=== PATIENT | female | born 1970 | race Caucasian/White ===

== ENCOUNTER 2021-11-10 15:39 | Inpatient (IN) ==
[2021-11-10] MEDS ORDERED: Ipratropium/Albuterol Neb 3 ML IH ONE (16:23)
[2021-11-10] MEDS ORDERED: 0.9 % Sodium Chloride 1,000 ML IVC ONE (16:23)
[2021-11-10] MEDS ORDERED: Acetaminophen 325 MG TABLET PO ONE (16:25)
[2021-11-10] MEDS ORDERED: Ketorolac 30 MG/ML VIAL IVP ONE (16:25)
[2021-11-10] MEDS ORDERED: Albuterol 2.5 MG/3 ML NEBULIZER IH ONE (16:26)
[2021-11-10 16:50] LABS: Basophils % 0.5 %; Hematocrit 41.5 % (35.3-44.9); Hemoglobin 12.4 g/dL (11.5-15.4); Immature Granulocytes % 0.9 % (0-4); Lymphocytes # 0.6 K/mcL (0.6-4.6); Lymphocytes % 8.4 %; Mean Corpuscular HGB Conc 29.9 g/dL (31.6-35.5); Mean Corpuscular Volume 66.9 fL (83.0-100.0); Mean Platelet Volume 9.5 fL (9.4-12.4); Monocytes # 0.2 K/mcL (0.0-1.3); Monocytes % 3.2 %; Neutrophils # 5.7 K/mcL (1.6-8.9); Platelet Count 448 K/mcL (140-400); Red Cell Distribution Width 19.2 % (11.5-14.5); White Blood Count 6.6 K/mcL (4.3-11.1)
[2021-11-10 17:00] LABS: Alanine Aminotransferase 15 Units/L (7-52); Albumin 2.6 g/dL (3.5-5.7); Albumin/Globulin Ratio 0.6 (1.1-2.2); Alkaline Phosphatase 127 Units/L (34-104); Aspartate Amino Transferase 20 Units/L (13-39); BUN/Creatinine Ratio 18 (6-26); Bilirubin,Direct 0.2 mg/dL (0.0-0.2); Bilirubin,Indirect 0.3 mg/dL (0.0-1.0); Bilirubin,Total 0.5 mg/dL (0.3-1.0); Blood Urea Nitrogen 20 mg/dL (6-20); Calcium 8.5 mg/dL (8.6-10.3); Carbon Dioxide 25 mEq/L (23-29); Chloride 96 mEq/L (98-107); Globulin 4.2 g/dL (2.4-3.5); Glucose 169 mg/dL (70-105); Osmolality,Calculated 283 (280-300); Potassium 3.8 mEq/L (3.5-5.1); Sodium 133 mEq/L (136-145); Total Protein 6.8 g/dL (6.4-8.9); Troponin I < 0.03 ng/mL (< 0.04); eGFR For African Americans > 60 (> 60); eGFR For Non-African Americans 53 (> 60)
[2021-11-10 17:05] LABS: Lipase 9 Units/L (11-82)
[2021-11-10 17:23] LABS: Anisocytosis 1+ (Not Present)
[2021-11-10 17:24] LABS: Microcytosis Present (Not Present)
[2021-11-10 18:26] LABS: Influenza A PCR Negative (Negative); Influenza B PCR Negative (Negative); Resp. Syncytial Virus PCR Negative (Negative)
[2021-11-10 18:38] LABS: SARS-CoV-2 by PCR (In House) Positive (Negative)
[2021-11-10] MEDS ORDERED: Naloxone 0.4 MG/ML INJ IVP PRN (23:28)
[2021-11-10] MEDS ORDERED: Melatonin 3 MG TABLET PO PRN (23:28)
[2021-11-10] MEDS: Nicotine 21 MG PATCH.TD24 TD SCH (23:48)
[2021-11-11] MEDS: rOPINIRole 1 MG TABLET PO SCH ×4 (02:32→21:06)
[2021-11-11] MEDS ORDERED: *HR* Heparin 5,000 UNIT/ML VIAL SQ SCH (06:00)
[2021-11-11 06:11] LABS: Basophils % 0.2 %; Immature Granulocytes % 0.7 % (0-4); Lymphocytes # 0.7 K/mcL (0.6-4.6); Lymphocytes % 5.6 %; Mean Corpuscular HGB Conc 30.6 g/dL (31.6-35.5); Mean Corpuscular Hemoglobin 20.5 pg (28.0-33.3); Mean Corpuscular Volume 67.1 fL (83.0-100.0); Mean Platelet Volume 10.2 fL (9.4-12.4); Monocytes # 0.7 K/mcL (0.0-1.3); Monocytes % 5.5 %; Platelet Count 441 K/mcL (140-400); Red Blood Count 5.07 M/mcL (3.82-4.97); Red Cell Distribution Width 18.7 % (11.5-14.5)
[2021-11-11 06:14] LABS: Hemoglobin 10.4 g/dL (11.5-15.4); Neutrophils # 10.7 K/mcL (1.6-8.9); White Blood Count 12.1 K/mcL (4.3-11.1)
[2021-11-11 06:17] LABS: INR 1.3
[2021-11-11 06:39] LABS: Albumin 2.6 g/dL (3.5-5.7); Albumin/Globulin Ratio 0.7 (1.1-2.2); Bilirubin,Total 0.5 mg/dL (0.3-1.0); Calcium 7.9 mg/dL (8.6-10.3); Globulin 3.5 g/dL (2.4-3.5); Magnesium 1.7 mg/dL (1.6-2.6); Phosphorous 5.2 mg/dL (2.7-4.5); Potassium 4.3 mEq/L (3.5-5.1); Total Protein 6.1 g/dL (6.4-8.9); Troponin I 0.03 ng/mL (< 0.04)
[2021-11-11 06:53] LABS: Anisocytosis 1+ (Not Present); Hypochromasia Present (Not Present); Microcytosis Present (Not Present)
[2021-11-11] MEDS ORDERED: Azithromycin 250 MG TABLET PO ONE (07:50)
[2021-11-11] MEDS: Ipratropium 1 PUFF INHALER IH SCH ×5 (08:03→23:55)
[2021-11-11] MEDS: Dexamethasone Sodium Phos/PF 10 MG/ML VIAL IVP SCH (08:39)
[2021-11-11] MEDS: *HR* Enoxaparin 40 MG/0.4 ML SYRINGE SQ SCH ×2 (08:39→18:35)
[2021-11-11] MEDS: Acetaminophen 325 MG TABLET PO PRN ×2 (13:57→21:06)
[2021-11-11] MEDS: Nicotine 21 MG PATCH.TD24 TD SCH (21:03)
[2021-11-11] MEDS ORDERED: Chloraseptic Spray 177 ML BOTTLE MM PRN (22:51)
[2021-11-12] MEDS: Ipratropium 1 PUFF INHALER IH SCH ×6 (04:07→23:48)
[2021-11-12] MEDS: *HR* Enoxaparin 40 MG/0.4 ML SYRINGE SQ SCH ×2 (05:59→18:32)
[2021-11-12] MEDS ORDERED: *HR* Enoxaparin 40 MG/0.4 ML SYRINGE SQ SCH (06:00)
[2021-11-12] MEDS: Acetaminophen 325 MG TABLET PO PRN ×2 (06:04→12:35)
[2021-11-12] MEDS ORDERED: Azithromycin 500 MG in 0.9 % Sodium Chloride 250 ML IVPB SCH (08:00)
[2021-11-12] MEDS ORDERED: Azithromycin 250 MG TABLET PO SCH (09:00)
[2021-11-12] MEDS ORDERED: cefTRIAXone 1,000 MG in Water for inj. (sterile) 10 ML IVP SCH (09:00)
[2021-11-12] MEDS: Dexamethasone Sodium Phos/PF 10 MG/ML VIAL IVP SCH (09:07)
[2021-11-12] MEDS: rOPINIRole 1 MG TABLET PO SCH ×3 (09:08→22:04)
[2021-11-12 09:21] LABS: Hematocrit 34.4 % (35.3-44.9); Hemoglobin 10.3 g/dL (11.5-15.4); Mean Corpuscular HGB Conc 29.9 g/dL (31.6-35.5); Mean Corpuscular Hemoglobin 20.1 pg (28.0-33.3); Mean Corpuscular Volume 67.2 fL (83.0-100.0); Mean Platelet Volume 10.2 fL (9.4-12.4); Monocytes # 0.8 K/mcL (0.0-1.3); Platelet Count 498 K/mcL (140-400); Red Blood Count 5.12 M/mcL (3.82-4.97); Red Cell Distribution Width 18.3 % (11.5-14.5); White Blood Count 11.7 K/mcL (4.3-11.1)
[2021-11-12 09:41] LABS: Alanine Aminotransferase 30 Units/L (7-52); Albumin 2.6 g/dL (3.5-5.7); Albumin/Globulin Ratio 0.7 (1.1-2.2); Alkaline Phosphatase 88 Units/L (34-104); Aspartate Amino Transferase 32 Units/L (13-39); BUN/Creatinine Ratio 31 (6-26); Bilirubin,Total 0.4 mg/dL (0.3-1.0); Blood Urea Nitrogen 31 mg/dL (6-20); Calcium 8.3 mg/dL (8.6-10.3); Carbon Dioxide 26 mEq/L (23-29); Chloride 92 mEq/L (98-107); Globulin 3.9 g/dL (2.4-3.5); Glucose 260 mg/dL (70-105); Osmolality,Calculated 282 (280-300); Potassium 4.4 mEq/L (3.5-5.1); Sodium 128 mEq/L (136-145); Total Protein 6.5 g/dL (6.4-8.9); eGFR For African Americans > 60 (> 60); eGFR For Non-African Americans 58 (> 60)
[2021-11-12 10:08] LABS: Anisocytosis 2+ (Not Present); Lymphocytes # 1.3 K/mcL (0.6-4.6); Neutrophils # 9.5 K/mcL (1.6-8.9)
[2021-11-12 10:09] LABS: Hypochromasia Present (Not Present); Microcytosis Present (Not Present); Platelet Estimate Increased (Normal)
[2021-11-12 10:10] LABS: Toxic Granulation Present (Not Present)
[2021-11-12] MEDS: cefTRIAXone 1,000 MG in 0.9 % Sodium Chloride Mini Bag 100 ML IVP SCH (12:27)
[2021-11-12] MEDS ORDERED: Naloxone 0.4 MG/ML INJ IVP PRN (13:06)
[2021-11-12] MEDS: *HR* OxyCODONE Immed Rel 5 MG TABLET PO PRN ×2 (14:28→22:04)
[2021-11-12] MEDS: Sennosides/Docusate Sodium TABLET PO PRN ×2 (14:28→22:05)
[2021-11-12] MEDS: Doxycycline 100 MG in 0.9 % Sodium Chloride Mini Bag 100 ML IVPB SCH (18:32)
[2021-11-12] MEDS: Nicotine 21 MG PATCH.TD24 TD SCH (22:03)
[2021-11-13 01:41] LABS: Hematocrit 32.7 % (35.3-44.9); Hemoglobin 9.8 g/dL (11.5-15.4); Mean Corpuscular Hemoglobin 20.2 pg (28.0-33.3); Mean Corpuscular Volume 67.4 fL (83.0-100.0); Mean Platelet Volume 9.8 fL (9.4-12.4); Platelet Count 517 K/mcL (140-400); Red Blood Count 4.85 M/mcL (3.82-4.97); Red Cell Distribution Width 18.1 % (11.5-14.5); White Blood Count 13.4 K/mcL (4.3-11.1)
[2021-11-13 01:59] LABS: Alanine Aminotransferase 27 Units/L (7-52); Albumin 2.4 g/dL (3.5-5.7); Albumin/Globulin Ratio 0.6 (1.1-2.2); Alkaline Phosphatase 79 Units/L (34-104); Aspartate Amino Transferase 22 Units/L (13-39); BUN/Creatinine Ratio 35 (6-26); Bilirubin,Total 0.3 mg/dL (0.3-1.0); Blood Urea Nitrogen 30 mg/dL (6-20); Calcium 8.3 mg/dL (8.6-10.3); Carbon Dioxide 28 mEq/L (23-29); Chloride 92 mEq/L (98-107); D-Dimer 2920 ng/mLFEU (0-500); Globulin 3.9 g/dL (2.4-3.5); Glucose 439 mg/dL (70-105); Osmolality,Calculated 287 (280-300); Potassium 4.9 mEq/L (3.5-5.1); Sodium 126 mEq/L (136-145); Total Protein 6.3 g/dL (6.4-8.9); eGFR For African Americans > 60 (> 60); eGFR For Non-African Americans > 60 (> 60)
[2021-11-13 02:01] LABS: C-Reactive Protein 291 mg/L (Less than 10); Fibrinogen 787 mg/dL (169-393); Lactate Dehydrogenase 146 Units/L (140-271)
[2021-11-13 02:18] LABS: Anisocytosis 1+ (Not Present); Ferritin 420 ng/mL (10-120); Hypochromasia Present (Not Present); Lymphocytes # 1.1 K/mcL (0.6-4.6); Monocytes # 0.5 K/mcL (0.0-1.3); Neutrophils # 11.8 K/mcL (1.6-8.9); Platelet Estimate Increased (Normal); Toxic Granulation Present (Not Present)
[2021-11-13] MEDS: Ipratropium 1 PUFF INHALER IH SCH ×6 (04:03→23:44)
[2021-11-13] MEDS: Doxycycline 100 MG in 0.9 % Sodium Chloride Mini Bag 100 ML IVPB SCH ×2 (06:03→18:48)
[2021-11-13] MEDS: *HR* Enoxaparin 40 MG/0.4 ML SYRINGE SQ SCH ×2 (06:04→18:50)
[2021-11-13] MEDS ORDERED: Isovue-370 500 ML BOTTLE IVP ONE ×2 (07:41→11:27)
[2021-11-13] MEDS: rOPINIRole 1 MG TABLET PO SCH ×3 (08:29→21:06)
[2021-11-13] MEDS: *HR* OxyCODONE Immed Rel 5 MG TABLET PO PRN ×2 (08:29→15:16)
[2021-11-13] MEDS: Dexamethasone Sodium Phos/PF 10 MG/ML VIAL IVP SCH (08:30)
[2021-11-13] MEDS: cefTRIAXone 1,000 MG in 0.9 % Sodium Chloride Mini Bag 100 ML IVP SCH (08:31)
[2021-11-13 08:33] LABS: Magnesium 2.1 mg/dL (1.6-2.6)
[2021-11-13] MEDS ORDERED: 0.9 % Sodium Chloride 1,000 ML IVC SCH (11:30)
[2021-11-13] MEDS ORDERED: *HR* Dextrose 50 % in Water (Syg) 50 ML SYRINGE IVP PRN (15:49)
[2021-11-13] MEDS ORDERED: Dextrose Gel 15 GM/37.5 ML TUBE PO PRN ×2 (15:49)
[2021-11-13] MEDS ORDERED: D5% in Water 1,000 ML IVC PRN (15:49)
[2021-11-13 17:22] LABS: Estimated Average Glucose 235 mg/dl; Hemoglobin A1C 9.8 %
[2021-11-13] MEDS: Nicotine 21 MG PATCH.TD24 TD SCH (21:07)
[2021-11-13] MEDS: Insulin LISPRO 300 UNITS/3 ML VIAL SUBQ SCH (21:27)
[2021-11-14] MEDS ORDERED: Insulin DETEMIR 100 UNIT/ML X5UNITS SUBQ ONE (00:03)
[2021-11-14] MEDS: *HR* OxyCODONE Immed Rel 5 MG TABLET PO PRN ×3 (01:08→20:56)
[2021-11-14] MEDS: Ipratropium 1 PUFF INHALER IH SCH ×5 (03:49→19:56)
[2021-11-14] MEDS: Ondansetron 4 MG/2 ML VIAL IVP PRN (04:39)
[2021-11-14] MEDS: *HR* Enoxaparin 40 MG/0.4 ML SYRINGE SQ SCH ×2 (05:08→16:51)
[2021-11-14 05:51] LABS: Basophils % 0.3 %; Hematocrit 33.5 % (35.3-44.9); Immature Granulocytes % 2.9 % (0-4); Lymphocytes # 0.9 K/mcL (0.6-4.6); Lymphocytes % 6.9 %; Mean Corpuscular HGB Conc 29.9 g/dL (31.6-35.5); Mean Corpuscular Hemoglobin 20.3 pg (28.0-33.3); Mean Platelet Volume 9.9 fL (9.4-12.4); Monocytes # 1.1 K/mcL (0.0-1.3); Monocytes % 8.6 %; Neutrophils # 10.4 K/mcL (1.6-8.9); Platelet Count 529 K/mcL (140-400); Red Blood Count 4.93 M/mcL (3.82-4.97); Red Cell Distribution Width 18.3 % (11.5-14.5); Segmented Neutrophils % 81.3 %; White Blood Count 12.8 K/mcL (4.3-11.1)
[2021-11-14 06:14] LABS: Alanine Aminotransferase 28 Units/L (7-52); Albumin 2.5 g/dL (3.5-5.7); Albumin/Globulin Ratio 0.7 (1.1-2.2); Alkaline Phosphatase 90 Units/L (34-104); Aspartate Amino Transferase 19 Units/L (13-39); BUN/Creatinine Ratio 34 (6-26); Bilirubin,Total 0.4 mg/dL (0.3-1.0); Blood Urea Nitrogen 28 mg/dL (6-20); Calcium 8.4 mg/dL (8.6-10.3); Carbon Dioxide 27 mEq/L (23-29); Chloride 95 mEq/L (98-107); Globulin 3.8 g/dL (2.4-3.5); Glucose 377 mg/dL (70-105); Osmolality,Calculated 289 (280-300); Potassium 4.6 mEq/L (3.5-5.1); Sodium 129 mEq/L (136-145); Total Protein 6.3 g/dL (6.4-8.9); eGFR For African Americans > 60 (> 60); eGFR For Non-African Americans > 60 (> 60)
[2021-11-14 06:16] LABS: Anisocytosis 1+ (Not Present); Hypochromasia Present (Not Present); Platelet Estimate Marked Increase (Normal)
[2021-11-14] MEDS: Doxycycline 100 MG in 0.9 % Sodium Chloride Mini Bag 100 ML IVPB SCH (06:23)
[2021-11-14] MEDS: cefTRIAXone 1,000 MG in 0.9 % Sodium Chloride Mini Bag 100 ML IVP SCH (10:04)
[2021-11-14] MEDS: rOPINIRole 1 MG TABLET PO SCH ×3 (10:04→20:42)
[2021-11-14] MEDS: Dexamethasone Sodium Phos/PF 10 MG/ML VIAL IVP SCH (10:05)
[2021-11-14 16:45] LABS: Glucose,Peritoneal Fluid < 10 mg/dL (No Ref Range); LDH,Peritoneal Fluid > 1200 Units/L (No Ref Range); Total Protein,Peritoneal Fluid < 2.0 g/dL
[2021-11-14 16:49] LABS: RBC,Peritoneal Fluid 255000 RBC/mcL
[2021-11-14] MEDS: Piperacillin/Tazobactam 3.375 GM in 0.9 % Sodium Chloride Mini Bag 100 ML IVPB SCH (16:51)
[2021-11-14] MEDS: Insulin LISPRO 300 UNITS/3 ML VIAL SUBQ SCH ×2 (16:52→20:43)
[2021-11-14 17:27] LABS: Appearance of Peritoneal Fl CLOUDY (Clear)
[2021-11-14 17:47] LABS: Basophils,Peritoneal Fluid 0 %; Eosinophils,Peritoneal Fluid 0 %
[2021-11-14] MEDS: Insulin DETEMIR 100 UNIT/ML X5UNITS SUBQ SCH (20:42)
[2021-11-14] MEDS: Nicotine 21 MG PATCH.TD24 TD SCH (20:43)
[2021-11-15] MEDS: Ipratropium 1 PUFF INHALER IH SCH ×7 (00:07→23:13)
[2021-11-15] MEDS: Piperacillin/Tazobactam 3.375 GM in 0.9 % Sodium Chloride Mini Bag 100 ML IVPB SCH ×4 (00:24→23:49)
[2021-11-15] MEDS: Ondansetron 4 MG/2 ML VIAL IVP PRN (00:29)
[2021-11-15] MEDS: *HR* OxyCODONE Immed Rel 5 MG TABLET PO PRN ×3 (04:26→20:20)
[2021-11-15] MEDS: *HR* Enoxaparin 40 MG/0.4 ML SYRINGE SQ SCH ×2 (05:34→16:46)
[2021-11-15 05:41] LABS: Hematocrit 35.9 % (35.3-44.9); Hemoglobin 10.7 g/dL (11.5-15.4); Mean Corpuscular HGB Conc 29.8 g/dL (31.6-35.5); Mean Corpuscular Hemoglobin 20.2 pg (28.0-33.3); Mean Corpuscular Volume 67.9 fL (83.0-100.0); Mean Platelet Volume 9.6 fL (9.4-12.4); Nucleated Red Blood Cells 0.2 /100 WBC (0); Platelet Count 529 K/mcL (140-400); Red Blood Count 5.29 M/mcL (3.82-4.97); Red Cell Distribution Width 18.2 % (11.5-14.5); White Blood Count 12.6 K/mcL (4.3-11.1)
[2021-11-15 05:56] LABS: Fibrinogen 562 mg/dL (169-393)
[2021-11-15 06:01] LABS: D-Dimer 3674 ng/mLFEU (0-500)
[2021-11-15 06:03] LABS: Alanine Aminotransferase 35 Units/L (7-52); Albumin 2.5 g/dL (3.5-5.7); Albumin/Globulin Ratio 0.7 (1.1-2.2); Alkaline Phosphatase 85 Units/L (34-104); Aspartate Amino Transferase 28 Units/L (13-39); BUN/Creatinine Ratio 31 (6-26); Bilirubin,Total 0.5 mg/dL (0.3-1.0); Blood Urea Nitrogen 24 mg/dL (6-20); Calcium 8.5 mg/dL (8.6-10.3); Carbon Dioxide 30 mEq/L (23-29); Chloride 94 mEq/L (98-107); Globulin 3.7 g/dL (2.4-3.5); Glucose 225 mg/dL (70-105); Lactate Dehydrogenase 172 Units/L (140-271); Osmolality,Calculated 283 (280-300); Potassium 4.5 mEq/L (3.5-5.1); Sodium 131 mEq/L (136-145); Total Protein 6.2 g/dL (6.4-8.9); eGFR For African Americans > 60 (> 60); eGFR For Non-African Americans > 60 (> 60)
[2021-11-15 06:15] LABS: Ferritin 338 ng/mL (10-120)
[2021-11-15] MEDS: Insulin LISPRO 300 UNITS/3 ML VIAL SUBQ SCH ×4 (07:34→20:21)
[2021-11-15 07:45] LABS: Lymphocytes # 1.5 K/mcL (0.6-4.6); Monocytes # 1.4 K/mcL (0.0-1.3); Neutrophils # 9.3 K/mcL (1.6-8.9); Stomatocytes 1+ (Not Present); Target Cells 1+ (Not Present)
[2021-11-15 07:46] LABS: Anisocytosis 1+ (Not Present)
[2021-11-15 07:49] LABS: Platelet Estimate Increased (Normal)
[2021-11-15] MEDS: rOPINIRole 1 MG TABLET PO SCH ×3 (08:40→20:19)
[2021-11-15] MEDS: Dexamethasone Sodium Phos/PF 10 MG/ML VIAL IVP SCH (08:41)
[2021-11-15 10:13] LABS: C-Reactive Protein 149 mg/L (Less than 10)
[2021-11-15] MEDS: Nicotine 21 MG PATCH.TD24 TD SCH (20:19)
[2021-11-15] MEDS: Insulin DETEMIR 100 UNIT/ML X5UNITS SUBQ SCH (20:19)
[2021-11-16] MEDS: Ipratropium 1 PUFF INHALER IH SCH ×6 (03:39→23:18)
[2021-11-16] MEDS: *HR* Enoxaparin 40 MG/0.4 ML SYRINGE SQ SCH ×2 (04:04→17:09)
[2021-11-16] MEDS: *HR* OxyCODONE Immed Rel 5 MG TABLET PO PRN ×3 (04:04→18:11)
[2021-11-16 04:56] LABS: Hematocrit 35.5 % (35.3-44.9); Hemoglobin 10.6 g/dL (11.5-15.4); Mean Corpuscular HGB Conc 29.9 g/dL (31.6-35.5); Mean Corpuscular Hemoglobin 20.2 pg (28.0-33.3); Mean Corpuscular Volume 67.7 fL (83.0-100.0); Mean Platelet Volume 9.4 fL (9.4-12.4); Nucleated Red Blood Cells 0.2 /100 WBC (0); Platelet Count 472 K/mcL (140-400); Red Blood Count 5.24 M/mcL (3.82-4.97); White Blood Count 14.6 K/mcL (4.3-11.1)
[2021-11-16 05:12] LABS: Alanine Aminotransferase 46 Units/L (7-52); Albumin 2.4 g/dL (3.5-5.7); Albumin/Globulin Ratio 0.7 (1.1-2.2); Alkaline Phosphatase 80 Units/L (34-104); Aspartate Amino Transferase 36 Units/L (13-39); BUN/Creatinine Ratio 25 (6-26); Bilirubin,Total 0.5 mg/dL (0.3-1.0); Blood Urea Nitrogen 20 mg/dL (6-20); Calcium 8.2 mg/dL (8.6-10.3); Carbon Dioxide 31 mEq/L (23-29); Chloride 95 mEq/L (98-107); Globulin 3.6 g/dL (2.4-3.5); Glucose 164 mg/dL (70-105); Osmolality,Calculated 282 (280-300); Potassium 4.3 mEq/L (3.5-5.1); Sodium 133 mEq/L (136-145); eGFR For African Americans > 60 (> 60); eGFR For Non-African Americans > 60 (> 60)
[2021-11-16 07:23] LABS: Monocytes # 0.9 K/mcL (0.0-1.3)
[2021-11-16 07:25] LABS: Lymphocytes # 1.6 K/mcL (0.6-4.6); Neutrophils # 11.7 K/mcL (1.6-8.9); Platelet Estimate Normal (Normal)
[2021-11-16 07:26] LABS: Anisocytosis 1+ (Not Present); Hypochromasia Present (Not Present); Polychromasia 1+ (Not Present)
[2021-11-16] MEDS ORDERED: Vancomycin 2,000 MG/520 ML IV.SOLN IVPB ONE (08:00)
[2021-11-16] MEDS: Dexamethasone Sodium Phos/PF 10 MG/ML VIAL IVP SCH (08:57)
[2021-11-16] MEDS: rOPINIRole 1 MG TABLET PO SCH ×3 (08:57→21:16)
[2021-11-16] MEDS: Insulin LISPRO 300 UNITS/3 ML VIAL SUBQ SCH ×4 (08:58→21:23)
[2021-11-16] MEDS: Piperacillin/Tazobactam 3.375 GM in 0.9 % Sodium Chloride Mini Bag 100 ML IVPB SCH ×2 (09:04→15:06)
[2021-11-16] MEDS: Sennosides/Docusate Sodium TABLET PO PRN (09:23)
[2021-11-16 16:42] LABS: Fluid Source for Albumin PERITON/ASCITES
[2021-11-16] MEDS: Nicotine 21 MG PATCH.TD24 TD SCH (21:16)
[2021-11-16] MEDS: Insulin DETEMIR 100 UNIT/ML X5UNITS SUBQ SCH (21:23)
[2021-11-16] MEDS: Vancomycin 1,750 MG/517.5 ML IV.SOLN IVPB SCH (21:31)
[2021-11-17] MEDS: Piperacillin/Tazobactam 3.375 GM in 0.9 % Sodium Chloride Mini Bag 100 ML IVPB SCH ×3 (01:08→17:26)
[2021-11-17] MEDS: *HR* OxyCODONE Immed Rel 5 MG TABLET PO PRN ×3 (01:08→17:25)
[2021-11-17 01:56] LABS: Basophils % 0.1 %; Eosinophils % 0.1 %; Hematocrit 34.6 % (35.3-44.9); Hemoglobin 10.2 g/dL (11.5-15.4); Immature Granulocytes % 9.8 % (0-4); Lymphocytes # 1.4 K/mcL (0.6-4.6); Lymphocytes % 9.7 %; Mean Corpuscular HGB Conc 29.5 g/dL (31.6-35.5); Mean Platelet Volume 9.6 fL (9.4-12.4); Monocytes # 1.1 K/mcL (0.0-1.3); Monocytes % 7.6 %; Nucleated Red Blood Cells 0.3 /100 WBC (0); Platelet Count 442 K/mcL (140-400); Red Blood Count 5.09 M/mcL (3.82-4.97); Red Cell Distribution Width 18.4 % (11.5-14.5); Segmented Neutrophils % 72.7 %; White Blood Count 14.5 K/mcL (4.3-11.1)
[2021-11-17 01:59] LABS: Neutrophils # 10.5 K/mcL (1.6-8.9)
[2021-11-17 02:16] LABS: Fibrinogen 562 mg/dL (169-393)
[2021-11-17 02:19] LABS: D-Dimer 2159 ng/mLFEU (0-500)
[2021-11-17 02:20] LABS: Alanine Aminotransferase 43 Units/L (7-52); Albumin 2.3 g/dL (3.5-5.7); Albumin/Globulin Ratio 0.7 (1.1-2.2); Alkaline Phosphatase 75 Units/L (34-104); Aspartate Amino Transferase 26 Units/L (13-39); BUN/Creatinine Ratio 22 (6-26); Bilirubin,Total 0.5 mg/dL (0.3-1.0); Blood Urea Nitrogen 17 mg/dL (6-20); C-Reactive Protein 229 mg/L (Less than 10); Calcium 7.9 mg/dL (8.6-10.3); Carbon Dioxide 30 mEq/L (23-29); Chloride 97 mEq/L (98-107); Globulin 3.5 g/dL (2.4-3.5); Glucose 156 mg/dL (70-105); Lactate Dehydrogenase 168 Units/L (140-271); Osmolality,Calculated 281 (280-300); Potassium 4.2 mEq/L (3.5-5.1); Sodium 133 mEq/L (136-145); Total Protein 5.8 g/dL (6.4-8.9); eGFR For African Americans > 60 (> 60); eGFR For Non-African Americans > 60 (> 60)
[2021-11-17 02:28] LABS: Microcytosis Present (Not Present)
[2021-11-17 02:37] LABS: Ferritin 358 ng/mL (10-120)
[2021-11-17] MEDS: Ipratropium 1 PUFF INHALER IH SCH ×6 (04:23→23:31)
[2021-11-17] MEDS: *HR* Enoxaparin 40 MG/0.4 ML SYRINGE SQ SCH ×2 (06:52→17:25)
[2021-11-17] MEDS: Insulin LISPRO 300 UNITS/3 ML VIAL SUBQ SCH ×4 (07:24→20:52)
[2021-11-17] MEDS: rOPINIRole 1 MG TABLET PO SCH ×3 (09:45→20:54)
[2021-11-17] MEDS: Vancomycin 1,750 MG/517.5 ML IV.SOLN IVPB SCH (09:46)
[2021-11-17] MEDS: Dexamethasone Sodium Phos/PF 10 MG/ML VIAL IVP SCH (09:46)
[2021-11-17] MEDS: Sennosides/Docusate Sodium TABLET PO PRN (09:49)
[2021-11-17] MEDS: Acetaminophen 325 MG TABLET PO PRN (09:58)
[2021-11-17] MEDS: Nicotine 21 MG PATCH.TD24 TD SCH (20:54)
[2021-11-17] MEDS: Insulin DETEMIR 100 UNIT/ML X5UNITS SUBQ SCH (21:04)
[2021-11-18 01:14] LABS: Hematocrit 33.6 % (35.3-44.9); Mean Corpuscular HGB Conc 29.8 g/dL (31.6-35.5); Mean Corpuscular Hemoglobin 20.5 pg (28.0-33.3); Mean Corpuscular Volume 68.9 fL (83.0-100.0); Platelet Count 407 K/mcL (140-400); Red Blood Count 4.88 M/mcL (3.82-4.97); Red Cell Distribution Width 18.8 % (11.5-14.5)
[2021-11-18] MEDS: Piperacillin/Tazobactam 3.375 GM in 0.9 % Sodium Chloride Mini Bag 100 ML IVPB SCH ×3 (01:16→16:55)
[2021-11-18] MEDS: *HR* OxyCODONE Immed Rel 5 MG TABLET PO PRN ×3 (01:19→16:54)
[2021-11-18 01:38] LABS: Alanine Aminotransferase 54 Units/L (7-52); Albumin 2.3 g/dL (3.5-5.7); Albumin/Globulin Ratio 0.7 (1.1-2.2); Alkaline Phosphatase 95 Units/L (34-104); Aspartate Amino Transferase 38 Units/L (13-39); BUN/Creatinine Ratio 16 (6-26); Bilirubin,Total 0.5 mg/dL (0.3-1.0); Blood Urea Nitrogen 15 mg/dL (6-20); Calcium 7.9 mg/dL (8.6-10.3); Carbon Dioxide 29 mEq/L (23-29); Chloride 96 mEq/L (98-107); Globulin 3.5 g/dL (2.4-3.5); Glucose 266 mg/dL (70-105); Osmolality,Calculated 284 (280-300); Potassium 4.6 mEq/L (3.5-5.1); Sodium 132 mEq/L (136-145); Total Protein 5.8 g/dL (6.4-8.9); eGFR For African Americans > 60 (> 60); eGFR For Non-African Americans > 60 (> 60)
[2021-11-18 01:45] LABS: Hypochromasia Present (Not Present); Lymphocytes # 2.1 K/mcL (0.6-4.6); Monocytes # 0.6 K/mcL (0.0-1.3); Neutrophils # 11.7 K/mcL (1.6-8.9); Platelet Estimate Normal (Normal); Toxic Granulation Present (Not Present)
[2021-11-18] MEDS: Ipratropium 1 PUFF INHALER IH SCH ×5 (03:44→20:08)
[2021-11-18] MEDS: *HR* Enoxaparin 40 MG/0.4 ML SYRINGE SQ SCH ×2 (04:58→16:54)
[2021-11-18] MEDS: Acetaminophen 325 MG TABLET PO PRN (05:54)
[2021-11-18] MEDS: rOPINIRole 1 MG TABLET PO SCH ×3 (10:13→20:45)
[2021-11-18] MEDS: Dexamethasone Sodium Phos/PF 10 MG/ML VIAL IVP SCH (10:18)
[2021-11-18] MEDS: Insulin LISPRO 300 UNITS/3 ML VIAL SUBQ SCH ×4 (10:20→21:06)
[2021-11-18] MEDS: Sennosides/Docusate Sodium TABLET PO PRN (10:21)
[2021-11-18] MEDS: Nicotine 21 MG PATCH.TD24 TD SCH (20:44)
[2021-11-18] MEDS: Insulin DETEMIR 100 UNIT/ML X5UNITS SUBQ SCH (21:07)
[2021-11-19] MEDS: Ipratropium 1 PUFF INHALER IH SCH ×7 (00:11→23:41)
[2021-11-19] MEDS: Piperacillin/Tazobactam 3.375 GM in 0.9 % Sodium Chloride Mini Bag 100 ML IVPB SCH ×3 (00:54→17:30)
[2021-11-19] MEDS: *HR* OxyCODONE Immed Rel 5 MG TABLET PO PRN ×3 (00:56→17:23)
[2021-11-19 02:14] LABS: Hematocrit 33.3 % (35.3-44.9); Hemoglobin 10.1 g/dL (11.5-15.4); Mean Corpuscular HGB Conc 30.3 g/dL (31.6-35.5); Mean Corpuscular Hemoglobin 20.6 pg (28.0-33.3); Mean Corpuscular Volume 67.8 fL (83.0-100.0); Mean Platelet Volume 9.7 fL (9.4-12.4); Monocytes # 1.1 K/mcL (0.0-1.3); Platelet Count 379 K/mcL (140-400); Red Blood Count 4.91 M/mcL (3.82-4.97); Red Cell Distribution Width 18.6 % (11.5-14.5); White Blood Count 13.1 K/mcL (4.3-11.1)
[2021-11-19 02:29] LABS: BUN/Creatinine Ratio 18 (6-26); Blood Urea Nitrogen 13 mg/dL (6-20); Calcium 8.1 mg/dL (8.6-10.3); Carbon Dioxide 30 mEq/L (23-29); Chloride 93 mEq/L (98-107); Glucose 202 mg/dL (70-105); Osmolality,Calculated 276 (280-300); Potassium 4.3 mEq/L (3.5-5.1); Sodium 130 mEq/L (136-145); eGFR For African Americans > 60 (> 60); eGFR For Non-African Americans > 60 (> 60)
[2021-11-19 03:33] LABS: Anisocytosis 1+ (Not Present); Hypochromasia Present (Not Present); Lymphocytes # 2.6 K/mcL (0.6-4.6); Neutrophils # 9.4 K/mcL (1.6-8.9)
[2021-11-19] MEDS: *HR* Enoxaparin 40 MG/0.4 ML SYRINGE SQ SCH ×2 (05:12→17:25)
[2021-11-19] MEDS: Sennosides/Docusate Sodium TABLET PO PRN (09:10)
[2021-11-19] MEDS: rOPINIRole 1 MG TABLET PO SCH ×3 (09:11→20:34)
[2021-11-19] MEDS: Dexamethasone Sodium Phos/PF 10 MG/ML VIAL IVP SCH (09:12)
[2021-11-19] MEDS: Insulin LISPRO 300 UNITS/3 ML VIAL SUBQ SCH ×4 (09:26→22:50)
[2021-11-19] MEDS ORDERED: Isovue-370 500 ML BOTTLE IVP ONE (10:00)
[2021-11-19] MEDS: Acetaminophen 325 MG TABLET PO PRN ×2 (14:17→20:34)
[2021-11-19] MEDS: Nicotine 21 MG PATCH.TD24 TD SCH (20:34)
[2021-11-19] MEDS: Insulin DETEMIR 100 UNIT/ML X5UNITS SUBQ SCH (20:35)
[2021-11-20] MEDS: *HR* OxyCODONE Immed Rel 5 MG TABLET PO PRN ×2 (01:07→08:40)
[2021-11-20] MEDS: Piperacillin/Tazobactam 3.375 GM in 0.9 % Sodium Chloride Mini Bag 100 ML IVPB SCH ×3 (01:07→15:55)
[2021-11-20 01:31] LABS: Basophils # 0.1 K/mcL (0.0-0.2); Basophils % 0.6 %; Eosinophils % 0.1 %; Hemoglobin 10.3 g/dL (11.5-15.4); Immature Granulocytes % 7.5 % (0-4); Lymphocytes # 1.7 K/mcL (0.6-4.6); Lymphocytes % 13.3 %; Mean Corpuscular HGB Conc 30.3 g/dL (31.6-35.5); Mean Corpuscular Hemoglobin 20.7 pg (28.0-33.3); Mean Corpuscular Volume 68.3 fL (83.0-100.0); Mean Platelet Volume 9.5 fL (9.4-12.4); Monocytes # 1.1 K/mcL (0.0-1.3); Monocytes % 8.5 %; Neutrophils # 9.1 K/mcL (1.6-8.9); Nucleated Red Blood Cells 0.2 /100 WBC (0); Platelet Count 378 K/mcL (140-400); Red Blood Count 4.98 M/mcL (3.82-4.97); Red Cell Distribution Width 18.6 % (11.5-14.5)
[2021-11-20 01:51] LABS: BUN/Creatinine Ratio 18 (6-26); Blood Urea Nitrogen 14 mg/dL (6-20); Calcium 8.2 mg/dL (8.6-10.3); Carbon Dioxide 30 mEq/L (23-29); Chloride 93 mEq/L (98-107); Glucose 244 mg/dL (70-105); Osmolality,Calculated 287 (280-300); Sodium 134 mEq/L (136-145); eGFR For African Americans > 60 (> 60); eGFR For Non-African Americans > 60 (> 60)
[2021-11-20] MEDS: Ipratropium 1 PUFF INHALER IH SCH ×4 (03:57→15:44)
[2021-11-20] MEDS: *HR* Enoxaparin 40 MG/0.4 ML SYRINGE SQ SCH (05:08)
[2021-11-20] MEDS: Acetaminophen 325 MG TABLET PO PRN (05:08)
[2021-11-20] MEDS: Insulin LISPRO 300 UNITS/3 ML VIAL SUBQ SCH ×3 (07:48→17:07)
[2021-11-20] MEDS: Dexamethasone Sodium Phos/PF 10 MG/ML VIAL IVP SCH (08:35)
[2021-11-20] MEDS: rOPINIRole 1 MG TABLET PO SCH ×2 (08:37→15:54)
[2021-11-20] MEDS ORDERED: Insulin DETEMIR 100 UNIT/ML X5UNITS SUBQ SCH (09:00)
[2021-11-20 11:19] VITALS: TEMP 98
[2021-11-20 17:33] VITALS: BP 130/79; PULSE 73; O2SAT 91
== END 2021-11-20 18:10 | disposition left against medical advice (07) | DRG 720 ==
LOC: 2ANU 15:39 → EMEROOARM 15:39 → SUATTDRO 19:26 → 2ANU 20:09 → SUATTDRO 11-11 07:46
PROVIDERS: ADMIT Family Medicine; ATTEND Internal Medicine

== ENCOUNTER 2022-03-10 21:58 | Inpatient (IN) ==
[2022-03-10 23:57] LABS: Hematocrit 38.5 % (35.3-44.9); Hemoglobin 11.2 g/dL (11.5-15.4); Mean Corpuscular HGB Conc 29.1 g/dL (31.6-35.5); Mean Corpuscular Volume 75.8 fL (83.0-100.0); Mean Platelet Volume 9.3 fL (9.4-12.4); Platelet Count 321 K/mcL (140-400); Red Blood Count 5.08 M/mcL (3.82-4.97); Red Cell Distribution Width 15.7 % (11.5-14.5); White Blood Count 6.5 K/mcL (4.3-11.1)
[2022-03-11 00:11] LABS: BUN/Creatinine Ratio 33 (6-26); Blood Urea Nitrogen 18 mg/dL (6-20); Carbon Dioxide 31 mEq/L (23-29); Chloride 95 mEq/L (98-107); Glucose 135 mg/dL (70-105); Osmolality,Calculated 282 (280-300); Sodium 134 mEq/L (136-145); eGFR For African Americans > 60 (> 60); eGFR For Non-African Americans > 60 (> 60)
[2022-03-11 00:29] LABS: Platelet Estimate Normal (Normal)
[2022-03-11 00:31] LABS: Eosinophils # 0.2 K/mcL (0.0-0.6); Eosinophils % 2.5 %; Lymphocytes # 2.6 K/mcL (0.6-4.6); Lymphocytes % 39.7 %; Monocytes # 0.5 K/mcL (0.0-1.3); Monocytes % 7.4 %; Neutrophils # 3.2 K/mcL (1.6-8.9); Segmented Neutrophils % 49.4 %
[2022-03-11 00:32] LABS: Basophils % 0.5 %; Immature Granulocytes % 0.5 % (0-4)
[2022-03-11] MEDS ORDERED: Melatonin 3 MG TABLET PO PRN (01:37)
[2022-03-11] MEDS ORDERED: Naloxone 0.4 MG/ML INJ IVP PRN (01:37)
[2022-03-11] MEDS ORDERED: Acetaminophen 325 MG TABLET PO PRN (01:37)
[2022-03-11] MEDS ORDERED: D5% in Water 1,000 ML IVC PRN (03:40)
[2022-03-11] MEDS ORDERED: Dextrose Gel 15 GM/37.5 ML TUBE PO PRN ×2 (03:40)
[2022-03-11] MEDS ORDERED: *HR* Dextrose 50 % in Water (Syg) 50 ML SYRINGE IVP PRN (03:40)
[2022-03-11] MEDS ORDERED: Saliva Stimulant 44.3ml BOTTLE PO PRN ×2 (03:41→05:16)
[2022-03-11] MEDS ORDERED: rOPINIRole 1 MG TABLET PO ONE (03:55)
[2022-03-11 04:52] LABS: Hemoglobin 11.1 g/dL (11.5-15.4)
[2022-03-11 04:54] LABS: Hematocrit 39.6 % (35.3-44.9); Mean Corpuscular Hemoglobin 21.5 pg (28.0-33.3); Mean Corpuscular Volume 76.6 fL (83.0-100.0); Mean Platelet Volume 9.5 fL (9.4-12.4); Platelet Count 336 K/mcL (140-400); Red Blood Count 5.17 M/mcL (3.82-4.97); Red Cell Distribution Width 15.9 % (11.5-14.5); White Blood Count 6.6 K/mcL (4.3-11.1)
[2022-03-11 05:01] LABS: Activated Partial Thrombo Time 30.2 Seconds (26.0-36.0); INR 1.2; Prothrombin Time 13.4 Seconds (9.4-12.1)
[2022-03-11 05:08] LABS: BUN/Creatinine Ratio 32 (6-26); Blood Urea Nitrogen 18 mg/dL (6-20); Calcium 10.1 mg/dL (8.6-10.3); Carbon Dioxide 32 mEq/L (23-29); Chloride 95 mEq/L (98-107); Glucose 141 mg/dL (70-105); Osmolality,Calculated 284 (280-300); Potassium 3.7 mEq/L (3.5-5.1); Sodium 135 mEq/L (136-145); eGFR For African Americans > 60 (> 60); eGFR For Non-African Americans > 60 (> 60)
[2022-03-11] MEDS ORDERED: Artificial Tears SOLN 15 ML BOTTLE BOTH EYES PRN (05:16)
[2022-03-11] MEDS ORDERED: Saline Nasal Spray 44 ML BOTTLE NS PRN (05:16)
[2022-03-11] MEDS ORDERED: Ipratropium/Albuterol Neb 3 ML IH PRN (05:17)
[2022-03-11] MEDS ORDERED: Potassium Chloride Elixir 20 MEQ/15 ML UDC PO ONE (05:20)
[2022-03-11 05:36] LABS: % Iron Saturation 7 % (15-50); C-Reactive Protein 44 mg/L (Less than 10); Iron 22 mcg/dL (50-170); Transferrin 241 mg/dL (203-362)
[2022-03-11] MEDS ORDERED: Iron Sucrose Complex 400 MG in 0.9 % Sodium Chloride 250 ML IVPB ONE (05:43)
[2022-03-11] MEDS: Ondansetron 4 MG/2 ML VIAL IVP PRN (05:52)
[2022-03-11 05:55] LABS: Ferritin 134 ng/mL (10-120)
[2022-03-11 06:49] LABS: Folate > 22.3 ng/mL (3.0-16.0); Vitamin B12 379 pg/mL (250-1100)
[2022-03-11] MEDS ORDERED: *HR* Promethazine 25 MG/ML VIAL IM ONE (08:52)
[2022-03-11] MEDS ORDERED: Multivit/Ca/Min/Fe/FA 1 TAB TABLET PO SCH (09:00)
[2022-03-11] MEDS ORDERED: *HR* HYDROmorphone (PF) 1 MG/ML SYRINGE IVP ONE ×2 (09:00→22:26)
[2022-03-11] MEDS ORDERED: Zinc Sulfate 220 MG CAPSULE PO SCH (09:00)
[2022-03-11] MEDS: Gabapentin 300 MG CAPSULE PO SCH ×3 (10:22→21:36)
[2022-03-11] MEDS: Lactobacillus 1 EACH CAP.SPRINK PO SCH ×2 (10:22→21:36)
[2022-03-11] MEDS: rOPINIRole 1 MG TABLET PO SCH ×2 (10:22→21:35)
[2022-03-11] MEDS: Chlorhexidine Rinse 15 ML MOUTHWASH MM SCH ×2 (10:22→21:37)
[2022-03-11] MEDS: Ascorbic Acid 500 MG TABLET PO SCH ×2 (10:22→21:36)
[2022-03-11] MEDS: Diphenoxylate/Atropine 1 TAB TABLET PO SCH ×4 (10:22→21:36)
[2022-03-11] MEDS: Amoxicillin Susp 250 MG/5 ML UDC GTUBE SCH ×2 (10:22→21:35)
[2022-03-11] MEDS: *HR* Heparin 5,000 UNIT/ML VIAL SQ SCH ×3 (10:27→21:36)
[2022-03-11] MEDS: *HR* OxyCODONE/APAP 5/325 TABLET PO PRN ×2 (14:23→20:23)
[2022-03-12] MEDS ORDERED: *HR* HYDROmorphone (PF) 1 MG/ML SYRINGE IVP ONE ×2 (02:22→08:51)
[2022-03-12] MEDS: Ondansetron 4 MG/2 ML VIAL IVP PRN (02:37)
[2022-03-12] MEDS: *HR* Heparin 5,000 UNIT/ML VIAL SQ SCH ×3 (05:28→21:44)
[2022-03-12] MEDS: *HR* OxyCODONE/APAP 5/325 TABLET PO PRN (05:28)
[2022-03-12] MEDS: Amoxicillin Susp 250 MG/5 ML UDC GTUBE SCH (08:31)
[2022-03-12] MEDS: Chlorhexidine Rinse 15 ML MOUTHWASH MM SCH ×2 (08:31→21:44)
[2022-03-12] MEDS ORDERED: Melatonin 3 MG TABLET GTUBE PRN (13:15)
[2022-03-12] MEDS: *HR* HYDROmorphone (PF) 1 MG/ML SYRINGE IVP PRN ×3 (15:01→22:22)
[2022-03-12] MEDS: Gabapentin 300 MG CAPSULE GTUBE SCH ×2 (15:02→21:45)
[2022-03-12] MEDS: HydrOXYzine SYP 10 MG/5 ML UDC GTUBE PRN (17:05)
[2022-03-12] MEDS: Ascorbic Acid 500 MG TABLET GTUBE SCH (21:44)
[2022-03-12] MEDS: Lactobacillus 1 EACH CAP.SPRINK GTUBE SCH (21:45)
[2022-03-12] MEDS: rOPINIRole 1 MG TABLET GTUBE SCH (21:45)
[2022-03-13] MEDS: DIPHENOXYLATE GTUBE SCH ×6 (02:44→21:55)
[2022-03-13] MEDS: ATROPINE GTUBE SCH ×6 (02:44→21:55)
[2022-03-13] MEDS: *HR* HYDROmorphone (PF) 1 MG/ML SYRINGE IVP PRN ×4 (03:17→19:09)
[2022-03-13] MEDS: *HR* Heparin 5,000 UNIT/ML VIAL SQ SCH ×3 (05:24→21:55)
[2022-03-13] MEDS: *HR* OxyCODONE/APAP 5/325 TABLET GTUBE PRN ×2 (05:34→21:56)
[2022-03-13] MEDS: Lactobacillus 1 EACH CAP.SPRINK GTUBE SCH ×2 (09:47→21:56)
[2022-03-13] MEDS: Gabapentin 300 MG CAPSULE GTUBE SCH ×3 (09:48→21:56)
[2022-03-13] MEDS: rOPINIRole 1 MG TABLET GTUBE SCH ×2 (09:48→21:56)
[2022-03-13] MEDS: Chlorhexidine Rinse 15 ML MOUTHWASH MM SCH ×2 (09:48→21:54)
[2022-03-13] MEDS: Zinc Sulfate 220 MG CAPSULE GTUBE SCH (09:48)
[2022-03-13] MEDS: Ascorbic Acid 500 MG TABLET GTUBE SCH ×2 (09:48→21:56)
[2022-03-13] MEDS ORDERED: *HR* Promethazine 25 MG/ML VIAL IM ONE (10:16)
[2022-03-13] MEDS: Multivitamin Liquid 15 ML UDC GTUBE SCH (11:29)
[2022-03-13] MEDS: HydrOXYzine SYP 10 MG/5 ML UDC GTUBE PRN (11:59)
[2022-03-13] MEDS: Insulin LISPRO 300 UNITS/3 ML VIAL SUBQ SCH (16:30)
[2022-03-14] MEDS: *HR* HYDROmorphone (PF) 1 MG/ML SYRINGE IVP PRN ×6 (00:28→20:40)
[2022-03-14] MEDS: *HR* Heparin 5,000 UNIT/ML VIAL SQ SCH ×3 (04:28→20:44)
[2022-03-14] MEDS: Chlorhexidine Rinse 15 ML MOUTHWASH MM SCH ×2 (08:09→20:43)
[2022-03-14] MEDS: HydrOXYzine SYP 10 MG/5 ML UDC GTUBE PRN ×2 (08:09→16:37)
[2022-03-14] MEDS: DIPHENOXYLATE GTUBE SCH ×4 (08:09→21:06)
[2022-03-14] MEDS: ATROPINE GTUBE SCH ×4 (08:09→21:06)
[2022-03-14] MEDS: Ascorbic Acid 500 MG TABLET GTUBE SCH ×2 (08:10→20:43)
[2022-03-14] MEDS: rOPINIRole 1 MG TABLET GTUBE SCH ×2 (08:10→20:44)
[2022-03-14] MEDS: Gabapentin 300 MG CAPSULE GTUBE SCH ×3 (08:10→20:44)
[2022-03-14] MEDS: Lactobacillus 1 EACH CAP.SPRINK GTUBE SCH ×2 (08:10→20:44)
[2022-03-14] MEDS: Zinc Sulfate 220 MG CAPSULE GTUBE SCH (08:10)
[2022-03-14] MEDS: Multivitamin Liquid 15 ML UDC GTUBE SCH (08:10)
[2022-03-14] MEDS: Insulin LISPRO 300 UNITS/3 ML VIAL SUBQ SCH ×3 (12:09→16:44)
[2022-03-14] MEDS: Octreotide 400 MCG in 0.9 % Sodium Chloride 100 ML IVC SCH ×2 (12:51→21:06)
[2022-03-15 00:42] VITALS: BP 120/79; PULSE 113; TEMP 97.6; O2SAT 96
[2022-03-15] MEDS: *HR* HYDROmorphone (PF) 1 MG/ML SYRINGE IVP PRN ×2 (00:44→04:31)
== END 2022-03-15 04:45 | DRG 252 ==
LOC: 3BNU 21:58 → EMEROOARM 21:58 → SUATTDRO 03-11 01:31 → 3BNU 03-11 02:32 → 3ANU 03-12 20:10
PROVIDERS: ADMIT Internal Medicine; ATTEND Internal Medicine